=== PATIENT | male | born 1970 | race Two or more races ===

== ENCOUNTER → 2017-07-17 | Emergency (ER) | payer OTHER ==
[~2017-07-17] VITALS: Ht 182.9 cm; Wt 99.8 kg
[~2017-07-17] MED LIST: CATAFLAM50 MG PO; CEFTIN500 MG PO; CEPHALEXIN500 M1 PO; CIPRO750 MG PO; KETO10TA2 PO; NABUMETONE750 MG PO; PREDNISONE10 MG PO; PREDNISONE5 MG/DOSE- PO
== END | disposition home or self-care (01) ==
LOC: ER 18:49
DX: M25.562 Pain in left knee (principal)

== ENCOUNTER 2017-07-18 18:33 | Emergency (ER) | payer OTHER ==
[~2017-07-18] VITALS: Ht 182.9 cm; Wt 99.8 kg
== END 2017-07-18 22:10 | disposition home or self-care (01) ==
LOC: ER 18:33
DX: M25.462 Effusion, left knee (principal)

== ENCOUNTER 2018-04-12 17:54 | Emergency (ER) | payer OTHER ==
[~2018-04-12] VITALS: Ht 182.9 cm; Wt 102.1 kg
== END 2018-04-12 23:57 | disposition home or self-care (01) ==
LOC: ER 17:54
DX: M10.031 Idiopathic gout, right wrist (principal); L03.113 Cellulitis of right upper limb

== ENCOUNTER 2018-09-08 15:49 | Emergency (ER) | payer OTHER ==
[~2018-09-08] VITALS: Ht 182.9 cm; Wt 102.1 kg
== END 2018-09-08 18:52 | disposition home or self-care (01) ==
LOC: ER 15:49
DX: M79.671 Pain in right foot (principal)

== ENCOUNTER 2019-01-22 20:01 | Emergency (ER) | payer OTHER ==
[~2019-01-22] VITALS: Ht 182.9 cm; Wt 104.3 kg
== END 2019-01-23 01:23 | disposition home or self-care (01) ==
LOC: ER 20:01
DX: M10.042 Idiopathic gout, left hand (principal)